=== PATIENT | female | born 1995 | race African-American/Black ===

== ENCOUNTER 2017-02-08 10:59 | Emergency (ER) | payer BC ==
[~2017-02-08] VITALS: Ht 165.1 cm; Wt 89.5 kg
[2017-02-08 11:05] VITALS: Ht 165.1 cm; Wt 89.5 kg
[2017-02-08] MEDS ORDERED: ACETAMINOPHEN 500 MG TAB PO ONE (11:10)
[2017-02-08] MEDS ORDERED: KETOROLAC TROMETHAMINE 30 MG/ML VIAL IV STA (12:15)
[2017-02-08] MEDS ORDERED: SODIUM CHLORIDE 0.9% 1000ML 1,000 ML IV STA (12:15)
[2017-02-08] MEDS ORDERED: ONDANSETRON INJ 2 MG/ML 2 ML VIAL IV STA (12:15)
[2017-02-08 12:24] LABS: BASO % 0.5 %; BASO ABS # 0.04 K/uL (0-0.2); EOS % 0.5 %; HEMATOCRIT 38.9 % (37-47); IG% 0.2 %; LYMPH % 26.2 %; LYMPH ABS # 2.27 K/uL (1.2-3.4); MEAN CELL VOLUME 71.5 fL (80-100); MEAN CORPUSCULAR HEMOGLOBIN 23.2 pg (25-34); MEAN CORPUSCULAR HGB CONC 32.4 g/dl (32-36); MEAN PLATELET VOLUME 9.5 fL (7.4-10.4); NEUT % 67.6 %; PLATELET COUNT 306 K/uL (130-400); RED BLOOD COUNT 5.44 M/uL (4.2-5.4); WHITE BLOOD COUNT 8.66 K/uL (4.8-10.8)
[2017-02-08 12:32] LABS: BUN/CREATININE RATIO 11.3 (10-20); CALCIUM 8.9 mg/dl (8.5-10.1); CREATININE 0.86 mg/dl (0.60-1.20)
[2017-02-08 12:34] LABS: ALB/GLOB RATIO 0.8 (0.9-2)
[2017-02-08 12:42] LABS: URINE APPEARANCE CLEAR (CLEAR); URINE BILIRUBIN NEG (NEG); URINE COLOR YELLOW; URINE NITRITE NEG (NEG); URINE PH 7.5 (4.5-7.5); URINE SPECIFIC GRAVITY 1.006 (1.000-1.030); UROBILINOGEN NEG (NEG)
[2017-02-08 12:53] LABS: MANUAL MICROSCOPIC REQUIRED? NO; REVIEW REQ? NO
[2017-02-08 13:03] LABS: COMPLETE YES
--- NOTE | 2017-02-08 13:09 | EMERGENCY ROOM VISIT NOTE ---
History Report prepared by [place]: Ian Arias Under the Supervision of: Dr. Christine Mensah D.O. First contact with patient: 11:47 Chief Complaint: OTHER COMPLAINT Stated Complaint: VOMITING History of Present Illness The patient is a 21 year old female who presents to the Emergency Room with complaints of a severe headache starting last night. She also complains of fever , hot and cold flashes, neck pain, and back pain. She has been taking a gram Tylenol until yesterday without relief. She also reports nausea and vomiting starting last night. She has had 4 vomiting episodes since last night. The patient was diagnosed with mumps 4 days ago by [facility]. She was immunized against mumps. The patient has been placed in quarantine. She reports a normal appetite and a normal fluid intake. She denies chest pain, shortness of breath, urinary symptoms, diarrhea, or any other complaints. The patient does not have any medical problems. Her last normal menstrual period was on January 30. Source of History: patient Onset: last night Position: head Symptom Intensity: severe Modifying Factors (Relieving): tylenol (without relief) Associated Symptoms: + back pain, + fevers, + neck pain, No SOB, No chest pain, No diarrhea, No urinary symptoms Review of Systems See HPI for pertinent positives & negatives. A total of 10 systems reviewed and were otherwise negative. Past Medical & Surgical Medical Problems: (1) Mumps Family History Patient reports no known family medical history. Social History Smoking Status: Never Smoker Marital Status: single Housing Status: lives alone Occupation Status: [employer] student Current/Historical Medications No Active Prescriptions or Reported Meds Allergies Coded Allergies: No Known Allergies (Unverified , 02/08/17) Physical Exam Vital Signs Date Time Temp Pulse Resp B/P Pulse Ox O2 Delivery O2 Flow Rate FiO2 02/08/17 14:13 37.3 93 16 113/78 98 02/08/17 12:27 37.7 94 20 101/55 100 Room Air 02/08/17 11:16 95 02/08/17 11:05 38.1 88 20 119/73 Room Air Physical Exam HEENT: Head - normocephalic and atraumatic Pupils are equal, round, and reactive to light. Extraocular eye muscles are intact, and sclera are anicteric. Nose - moist nasal mucosa without discharge. Mouth - moist buccal mucosa. Oropharynx is nonerythematous and there is no tonsillar exudate or edema noted. Neck: Supple; no JVD or nuchal rigidity. Mild anterior cervical lymphadenopathy. Heart: Regular rate and rhythm. There is a normal S1 and S2 with no murmurs, clicks, or gallops appreciated. Lungs: Clear to auscultation bilaterally with no wheezes, rales, or rhonchi. Abdomen: Soft, completely nontender, nondistended, with good bowel sounds. There are no palpable pulsatile masses or hepatosplenomegaly. There is no guarding, rigidity, or rebound noted. Extremities: No evidence of cyanosis, clubbing, or edema. There are easily palpable peripheral pulses. Skin: warm and dry with good turgor and no rashes. Medical Decision & Procedures Laboratory Results 02/08/17 11:30 Red Blood Count 5.44, Mean Corpuscular Volume 71.5, Mean Corpuscular Hemoglobin 23.2, Mean Corpuscular Hemoglobin Concent 32.4, Mean Platelet Volume 9.5, Neutrophils (%) (Auto) 67.6, Lymphocytes (%) (Auto) 26.2, Monocytes (%) (Auto) 5.0, Eosinophils (%) (Auto) 0.5, Basophils (%) (Auto) 0.5, Neutrophils # (Auto) 5.86, Lymphocytes # (Auto) 2.27, Monocytes # (Auto) 0.43, Eosinophils # (Auto) 0.04, Basophils # (Auto) 0.04 02/08/17 11:30 Test 02/08/17 11:30 02/08/17 12:35 White Blood Count 8.66 K/uL (4.8-10.8) Red Blood Count 5.44 M/uL (4.2-5.4) Hemoglobin 12.6 g/dL (12.0-16.0) Hematocrit 38.9 % (37-47) Mean Corpuscular Volume 71.5 fL (80-100) Mean Corpuscular Hemoglobin 23.2 pg (25-34) Mean Corpuscular Hemoglobin Concent 32.4 g/dl (32-36) Platelet Count 306 K/uL (130-400) Mean Platelet Volume 9.5 fL (7.4-10.4) Neutrophils (%) (Auto) 67.6 % Lymphocytes (%) (Auto) 26.2 % Monocytes (%) (Auto) 5.0 % Eosinophils (%) (Auto) 0.5 % Basophils (%) (Auto) 0.5 % Neutrophils # (Auto) 5.86 K/uL (1.4-6.5) Lymphocytes # (Auto) 2.27 K/uL (1.2-3.4) Monocytes # (Auto) 0.43 K/uL (0.11-0.59) Eosinophils # (Auto) 0.04 K/uL (0-0.5) Basophils # (Auto) 0.04 K/uL (0-0.2) RDW Standard Deviation 36.1 fL (36.4-46.3) RDW Coefficient of Variation 13.9 % (11.5-14.5) Immature Granulocyte % (Auto) 0.2 % Immature Granulocyte # (Auto) 0.02 K/uL (0.00-0.02) Anion Gap 5.0 mmol/L (3-11) Est Creatinine Clear Calc Drug Dose 114.3 ml/min Estimated GFR () 111.9 Estimated GFR (Non- 96.6 BUN/Creatinine Ratio 11.3 (10-20) Calcium Level 8.9 mg/dl (8.5-10.1) Total Bilirubin 0.5 mg/dl (0.2-1) Aspartate Amino Transf (AST/SGOT) 17 U/L (15-37) Alanine Aminotransferase (ALT/SGPT) 28 U/L (12-78) Alkaline Phosphatase 80 U/L (45-117) Total Protein 8.9 gm/dl (6.4-8.2) Albumin 3.9 gm/dl (3.4-5.0) Globulin 5.0 gm/dl (2.5-4.0) Albumin/Globulin Ratio 0.8 (0.9-2) Urine Color YELLOW Urine Appearance CLEAR (CLEAR) Urine pH 7.5 (4.5-7.5) Urine Specific [place] 1.006 (1.000-1.030) Urine Protein NEG (NEG) Urine Glucose (UA) NEG (NEG) Urine Ketones NEG (NEG) Urine Occult Blood NEG (NEG) Urine Nitrite NEG (NEG) Urine Bilirubin NEG (NEG) Urine Urobilinogen NEG (NEG) Urine Leukocyte Esterase NEG (NEG) Laboratory results per my review. Medications Administered Medications (Trade) Dose Ordered Sig/Donna Route Start Time Stop Time Status Last Admin Dose Admin Acetaminophen (Tylenol Tab) 1,000 mg STK-MED ONCE PO 02/08/17 11:10 02/08/17 11:13 DC 02/08/17 11:24 1,000 MG Ketorolac Tromethamine 30 mg 30 mg NOW STAT IV 02/08/17 12:15 02/08/17 12:17 DC 02/08/17 12:30 30 MG Sodium Chloride (Nss 1000ml) 1,000 ml @ 999 mls/hr Q1H1M STAT IV 02/08/17 12:15 02/08/17 13:15 DC 02/08/17 12:15 999 MLS/HR Ondansetron HCl (Zofran Inj) 4 mg NOW STAT IV 02/08/17 12:15 02/08/17 12:17 DC 02/08/17 12:30 4 MG Procedure Zofran Inj 4 mg IV, Sodium Chloride 1000 ml @ 999 mls/hr IV, Toradol Inj 30 mg IV ED Course 1147: Past medical records reviewed. The patient was evaluated in room C10. A complete history and physical exam was performed. An IV lock was initiated and labs were drawn as above. 1215: Zofran Inj 4 mg IV, Sodium Chloride 1000 ml @ 999 mls/hr IV, Toradol Inj 30 mg IV 1303: I reevaluated the patient. She reports that she had received Tylenol upon arrival by the nurses in the Emergency Room which made her feel better. 1324: Upon reevaluation, the patient is feeling much better. I discussed findings and results with her. She was easily able to drink. She verbalized agreement of the treatment plan. She was discharged home. Medical Decision This is a 21 year old female who presents to the Emergency Room with a chief complaint of a headache. Differential diagnosis includes but is not limited to dehydration, meningitis, viral illness. Her labs showed no leukocytosis, stable H&H, normal renal function, normal glucose, normal LFTs, urinalysis is clean. The patient has a history of mumps. She presents to the emergency department with arthralgias. She describes her symptoms as worsening. She received IV crystalloid therapy and Toradol and is feeling much better at this time. She is easily able to drink liquids. She had no significant leukocytosis or other laboratory findings. The patient will be discharged back to home where she is isolated. I've asked her to follow the instructions provided by the [facility] with regards to isolation. Impression Primary Impression: Arthralgia Additional Impression: Mumps Scribe Attestation The scribe's documentation has been prepared under my direction and personally reviewed by me in its entirety. I confirm that the note above accurately reflects all work, treatment, procedures, and medical decision making performed by me. Departure Information Dispostion Home / Self-Care Prescriptions No Active Prescriptions or Reported Meds Referrals Karla Leblanc M.D. (PCP) Forms HOME CARE DOCUMENTATION FORM, IMPORTANT VISIT INFORMATION, WORK / SCHOOL INSTRUCTIONS Patient Instructions My [facility] Additional Instructions Rest Take plenty of clear liquids Take motrin or tylenol for pain Continue to isolate yourself as directed by [facility] Problem Qualifiers
[2017-02-08 14:13] VITALS: BP 113/78; PULSE 93; TEMP 37.3; O2SAT 98
== END 2017-02-08 14:35 | disposition home or self-care (01) ==
LOC: EDUNIT# 10:59 → C.EDC 11:04
DX: B26.9 Mumps without complication (principal); M25.50 Pain in unspecified joint

== ENCOUNTER 2017-12-21 07:04 | Emergency (ER) | payer BC ==
[~2017-12-21] VITALS: Ht 170.2 cm; Wt 85.5 kg
[2017-12-21 07:11] VITALS: TEMP 36.9; Ht 170.2 cm; Wt 85.5 kg
--- NOTE | 2017-12-21 07:44 | DIAGNOSTIC IMAGING REPORT ---
L TOE(S) MIN 2 VIEWS CLINICAL HISTORY: L great toe injury COMPARISON: None FINDINGS: Alignment of the left first toe is anatomic. No fracture is identified. There are soft tissue swelling. IMPRESSION: No acute fracture or dislocation of the left first toe. Electronically signed by: Arcadio Ledbetter M.D. 12/21/2017 7:43 AM Dictated Date/Time: 12/21/2017 7:42 AM
[2017-12-21] MEDS ORDERED: IBUPROFEN 600 MG TAB PO STA (08:06)
[2017-12-21] MEDS ORDERED: TRAMADOL HCL 50 MG TAB PO STA (08:06)
[2017-12-21] MEDS ORDERED: TRAM-10 PO (08:09)
[2017-12-21 08:27] VITALS: BP 128/85; PULSE 73; O2SAT 100
--- NOTE | 2017-12-21 09:28 | EMERGENCY ROOM VISIT NOTE ---
History First contact with patient: 07:13 Chief Complaint: TOE PAIN, INJURY Stated Complaint: SPRAINED/BRUISED TOE History of Present Illness The patient is a 22 year old female who presents to the Emergency Room with complaints of an injury to her left great toe around 2 AM this morning. The patient reports that her bed frame fell apart, and the side rail fell onto her left great toe. The patient reports bruising and swelling, along with pain rated a 10 out of 10 with weightbearing. She denies any pain of the adjacent toes, or pain radiating into the foot. She has not noticed any numbness of the great toe. Review of Systems 10 system review was performed and was negative except for pertinent positives and negatives as indicated in history of present illness Past Medical/Surgical History Medical Problems: (1) Mumps Family History Patient reports no known family medical history. Social History Smoking Status: Never Smoker Alcohol Use: none Marital Status: single Housing Status: lives alone Occupation Status: [employer] student Current/Historical Medications Scheduled PRN Tramadol (Ultram), 1-2 TAB PO Q4H PRN for Pain Physical Exam Vital Signs Date Time Temp Pulse Resp B/P (MAP) Pulse Ox O2 Delivery O2 Flow Rate FiO2 12/21/17 08:27 73 16 128/85 100 12/21/17 07:11 36.9 96 18 120/79 100 Room Air Physical Exam CONSTITUTIONAL: Healthy and well nourished. Alert and oriented X 3 with positive affect. Patient appears in moderate discomfort from pain. HEENT: Normocephalic, atraumatic. Pupils equal, round and reactive. NECK: Full active range of motion without discomfort. MUSCULOSKELETAL: Examination of the left great toe shows mild ecchymosis and edema. No lacerations, nail subluxation or other open wounds noted. The toe is tender to palpation. She has no tenderness to palpation of the adjacent toes or metatarsal region. There is no subungual hematoma present. Capillary refill is less than 2 seconds. INTEGUMENTARY: No rash or other significant dermatologic conditions noted. NEUROLOGIC: Left great toe is sensory intact. Medical Decision & Procedures ER Provider Diagnostic Interpretation: My interpretation of left great toe x-rays does not show any acute fractures or dislocation. Radiologist report is as follows: L TOE(S) MIN 2 VIEWS CLINICAL HISTORY: L great toe injury COMPARISON: None FINDINGS: Alignment of the left first toe is anatomic. No fracture is identified. There are soft tissue swelling. IMPRESSION: No acute fracture or dislocation of the left first toe. Medications Administered Medications (Trade) Dose Ordered Sig/Donna Route Start Time Stop Time Status Last Admin Dose Admin Ibuprofen (Motrin Tab) 600 mg NOW STAT PO 12/21/17 08:06 12/21/17 08:08 DC 12/21/17 08:22 600 MG Tramadol HCl (Ultram Tab) 50 mg NOW STAT PO 12/21/17 08:06 12/21/17 08:08 DC 12/21/17 08:22 50 MG ED Course Patient history and physical exam were performed. Nurse's notes were reviewed. Vital signs were reviewed and normal. The patient had gone to x-ray prior to my exam, with x-ray showing no acute fractures or dislocations. An ice pack was dispensed, and the patient was administered Motrin 600 mg and Ultram 50 mg for pain. A postop shoe and laura taping were also applied as the patient was wearing flip-flops. The patient was encouraged to ice and elevate the foot for swelling and pain. Ibuprofen and Tylenol in alternating fashion for baseline pain relief. The patient was provided a prescription for Ultram as needed for breakthrough pain. She was provided contact information for orthopedics if symptoms are not improving within the next week. The patient voiced understanding of all discharge instructions, was happy with plan of care, received her medications just prior to discharge, and rated her discomfort an 8 out of 10 at the conclusion of my exam. Medical Decision [place] Drug Monitoring Program Search Results: patient reviewed within database, no issues identified Medication Reconcilliation Current Medication List: was personally reviewed by me Blood Pressure Screening Patient's blood pressure: Normal blood pressure Impression Primary Impression: Contusion of left great toe without damage to nail, initial encounter Departure Information Prescriptions Tramadol (Ultram) 50 Mg Tab 1-2 TAB PO Q4H Y for Pain, #20 TAB For Initial Treatment Prov: Basilio Barger PA 12/21/17 Referrals No Doctor, Assigned (PCP) Patient Instructions My [facility]
== END 2017-12-21 08:32 | disposition home or self-care (01) ==
LOC: C.EDB 07:05 → C.EDA 08:32
DX: S90.112A Contusion of left great toe without damage to nail, initial encounter (principal); W22.8XXA Striking against or struck by other objects, initial encounter